=== PATIENT | male | born 1975 | race Caucasian/White ===

== ENCOUNTER 2018-03-30 12:07 | Emergency (ER) | payer OTHER ==
--- NOTE | 2018-03-30 13:54 | EDM.PDOC ---
<Radha Mathews N - Last Filed: 03/30/18 14:39> ED HPI GENERAL MEDICAL PROBLEM - General Chief Complaint: Flank Pain Stated Complaint: LT SIDE PAIN/DECREASED URINE OUTPUT/HAD PROCEDURE Time Seen by Provider: 03/30/18 13:20 - History of Present Illness INITIAL COMMENTS - FREE TEXT/NARRATIVE: Chandra is an otherwise healthy 42-year-old male who presents to the clinic with ongoing left-sided abdominal pain with radiation to the left flank. Reports a complicated history of renal calculi since age 15. Reports that he does not have a primary care provider and self-treats these stones at home. However, his most recent stone occurred a few weeks ago, and he was seen at urgent care, where he was told he had a 9 mm stone in the left ureter. He had a lithotripsy in [place] four days ago, and has had ongoing pain since that time. States he passed the stone the night after the lithotripsy. This was not tested. Reports decreased urine output and urinary frequency along with the pain, and states he is worried about a UTI. He did not receive antibiotics after the procedure. Denies fever, chills, hematuria, or other associated symptoms. Rates the pain at a 6/10 and describes it as dull/throbbing in nature. There are no known aggravating or relieving factors, and the pain is unrelieved by tylenol and ibuprofen. Left Flank Pain Score (Numeric/FACES): 3 - Related Data Allergies Allergy/AdvReac Type Severity Reaction Status Date / Time No Known Allergies Allergy Verified 12/18/15 21:20 Home Meds: Home Meds Ibuprofen 400 mg PO Q4H PRN 12/18/15 [History] Nicotine [Nicoderm CQ] 21 mg PO DAILY 12/18/15 [History] guaiFENesin [Robitussin] 10 ml PO Q4H PRN 12/18/15 [History] Acetaminophen [Tylenol] 650 mg PO 03/30/18 [History] Past Medical History Respiratory History: Reports: Other (See Below) Other Respiratory History: Emphysema Gastrointestinal History: Reports: PUD, Other (See Below) Other Gastrointestinal History: recent kidney stone taken care in [place] by Dr Sampson Genitourinary History: Reports: Other (See Below) Other Genitourinary History: recent kidney stone taken care in [place] by Dr Sampson 03/26/18 Musculoskeletal History: Reports: Fracture Neurological History: Reports: Migraines - Past Surgical History HEENT Surgical History: Reports: Myringotomy w Tube(s), Tonsillectomy GI Surgical History: Reports: EGD Musculoskeletal Surgical History: Reports: Other (See Below) Social & Family History - Tobacco Use Smoking Status *Q: Current Every Day Smoker Years of Tobacco use: 25 Packs/Tins Daily: 0.5 Used Tobacco, but Quit: No - Caffeine Use Caffeine Use: Reports: Coffee - Recreational Drug Use Recreational Drug Use: No - Living Situation & Occupation Living situation: Reports: Occupation: Employed ED ROS GENERAL - Review of Systems Constitutional: Reports: Decreased Appetite. Denies: Fever, Chills, Malaise, Weakness HEENT: Reports: No Symptoms Respiratory: Reports: No Symptoms. Denies: Shortness of Breath Cardiovascular: Reports: No Symptoms Endocrine: Reports: No Symptoms GI/Abdominal: Reports: Abdominal Pain, Diarrhea, Decreased Appetite. Denies: Constipation, Nausea, Vomiting : Reports: Flank Pain, Frequency, Other (Reduced urine output). Denies: Hematuria, Urgency Musculoskeletal: Reports: No Symptoms Skin: Reports: No Symptoms Neurological: Reports: No Symptoms Psychiatric: Reports: No Symptoms Hematologic/Lymphatic: Reports: No Symptoms Immunologic: Reports: No Symptoms ED EXAM, RENAL/ - Physical Exam Exam: See Below Text/Narrative:: This is a pleasant, 42-year-old male in no acute distress. He is accompanied by his significant other, and converses appropriately. Exam Limited By: No Limitations General Appearance: Alert, No Apparent Distress Ears: Normal External Exam, Normal Canal, Hearing Grossly Normal, Normal TMs Nose: Normal Inspection Throat/Mouth: Normal Inspection, Normal Lips, Normal Gums, Normal Oropharynx, Normal Voice, No Airway Compromise Head: Atraumatic Respiratory/Chest: No Respiratory Distress, Lungs Clear, Normal Breath Sounds Cardiovascular: Regular Rate, Rhythm, No Gallop, No JVD, No Murmur GI/Abdominal: Normal Bowel Sounds, Soft, No Distention, No Mass, Tender (On right side) (Male) Exam: Deferred Neurological: Alert, Oriented, CN II-XII Intact, No Motor/Sensory Deficits Psychiatric: Normal Affect, Normal Mood Skin Exam: Warm, Dry, Intact Course - Vital Signs Last Recorded V/S: Last Vital Signs Temp 35.4 C 03/30/18 15:59 Pulse 58 L 03/30/18 15:59 Resp 16 03/30/18 15:59 BP 138/78 03/30/18 15:59 Pulse Ox 100 03/30/18 15:59 - Orders/Labs/Meds Orders: Active Orders 24 hr Category Date Time Status Abdomen Pelvis wo Cont [CT] Stat Exams 03/30/18 14:41 Taken URINALYSIS W/MICROSCOPIC [UA W/MICROSCOPIC] [URIN] Stat Lab 03/30/18 13:43 Ordered Sodium Chloride 0.9% [Normal Saline] 1,000 ml Med 03/30/18 14:30 Active IV ASDIRECTED Sodium Chloride 0.9% [Saline Flush] Med 03/30/18 14:30 Active 10 ml FLUSH ASDIRECTED PRN Saline Lock Insert [OM.PC] Routine Oth 03/30/18 14:30 Ordered Medication Orders Sodium Chloride (Normal Saline) 1,000 mls @ 500 mls/hr IV ASDIRECTED MEJIA Last Admin: 03/30/18 15:05 Dose: 500 mls/hr Sodium Chloride (Saline Flush) 10 ml FLUSH ASDIRECTED PRN PRN Reason: Keep Vein Open Last Admin: 03/30/18 16:11 Dose: 10 ml Labs: Laboratory Tests 03/30/18 03/30/18 03/30/18 Range/Units 13:43 13:50 13:55 WBC 14.2 H (4.5-11.0) K/uL RBC 4.85 (4.30-5.90) M/uL Hgb 14.6 (12.0-15.0) g/dL Hct 42.6 (40.0-54.0) % MCV 88 (80-98) fL MCH 30 (27-31) pg MCHC 34 (32-36) % Plt Count 290 (150-400) K/uL Neut % (Auto) 79 H (36-66) % Lymph % (Auto) 13 L (24-44) % Henry % (Auto) 7 H (2-6) % Eos % (Auto) 2 (2-4) % Baso % (Auto) 0 (0-1) % Sodium 138 L (140-148) mmol/L Potassium 4.5 (3.6-5.2) mmol/L Chloride 102 (100-108) mmol/L Carbon Dioxide 27 (21-32) mmol/L Anion Gap 13.5 (5.0-14.0) mmol/L BUN 23 H (7-18) mg/dL Creatinine 1.6 H (0.8-1.3) mg/dL Est Cr Clr Drug Dosing 57.59 mL/min Estimated GFR (MDRD) 47 L (>60) Glucose 88 (74-106) mg/dL Calcium 8.9 (8.5-10.1) mg/dL Urine Color Yellow Urine Appearance Slightly cloudy Urine pH 6.0 (4.5-8.0) Ur Specific [place] 1.010 (1.008-1.030) Urine Protein Negative (NEGATIVE) mg/dL Urine Glucose (UA) Normal (NEGATIVE) mg/dL Urine Ketones Negative (NEGATIVE) mg/dL Urine Occult Blood Large (NEGATIVE) Urine Nitrite Negative (NEGAITVE) Urine Bilirubin Negative (NEGATIVE) Urine Urobilinogen Normal (NORMAL) mg/dL Ur Leukocyte Esterase Negative (NEGATIVE) Urine RBC 5-10 H (0-5) Urine WBC 0-5 (0-5) Amorphous Sediment Rare Urine Bacteria Rare Urine Mucus Not seen Meds: Medications Generic Name Dose Route Start Last Admin Trade Name Freq PRN Reason Stop Dose Admin Sodium Chloride 1,000 mls @ 500 mls/hr 03/30/18 14:30 03/30/18 15:05 Normal Saline IV 500 mls/hr ASDIRECTED MEJIA Administration Sodium Chloride 10 ml 03/30/18 14:30 03/30/18 16:11 Saline Flush FLUSH 10 ml ASDIRECTED PRN Administration Keep Vein Open Discontinued Medications Generic Name Dose Route Start Last Admin Trade Name Freq PRN Reason Stop Dose Admin Ceftriaxone Sodium 2 gm/ 50 mls @ 100 mls/hr 03/30/18 16:12 03/30/18 16:23 Sodium Chloride IV 03/30/18 16:41 100 mls/hr ONETIME ONE Administration Tamsulosin HCl 0.4 mg 03/30/18 14:40 03/30/18 15:02 Flomax PO 03/30/18 14:41 0.4 mg ONETIME ONE Administration Departure - Departure Disposition: Home, Self-Care 01 Clinical Impression: Pyelonephritis, Renal stones - Discharge Information Instructions: Pyelonephritis, Adult, [id number], Kidney Stones, [id number] Referrals: Ana Maria Melendez MD [Primary Care Provider] - Forms: ED Department Discharge Additional Instructions: You have been evaluated and treated for renal stone and infection. You have been given normal saline 1000ml IV, flomax 0.4mg PO, rocephin 2gm IV in the emergency room today. Take ciprofloxacin 500mg by mouth twice per day for 14 days (antibiotic) Take flomax 0.4mg by mouth daily to help with pain. You can take acetaminophen 1000mg by mouth three to four times a day as needed for pain. Use of ibuprofen 800mg by mouth three times a day will also help with pain. Avoid the use of alcohol or sugary drinks. Drink plenty of water to stay hydrated and flush your kidneys. Keep your appointment as scheduled on April [address] Pompa. If you are not improving in the next 4 days, request to be seen by Dr. Pompa earlier. If you have symptoms of worsening, issues or concerns, return to the emergency room. - My Orders Last 24 Hours: My Active Orders 03/30/18 14:30 Sodium Chloride 0.9% [Normal Saline] 1,000 ml IV ASDIRECTED Sodium Chloride 0.9% [Saline Flush] 10 ml FLUSH ASDIRECTED PRN Saline Lock Insert [OM.PC] Routine 03/30/18 14:41 Abdomen Pelvis wo Cont [CT] Stat - Assessment/Plan Last 24 Hours: My Active Orders 03/30/18 14:30 Sodium Chloride 0.9% [Normal Saline] 1,000 ml IV ASDIRECTED Sodium Chloride 0.9% [Saline Flush] 10 ml FLUSH ASDIRECTED PRN Saline Lock Insert [OM.PC] Routine 03/30/18 14:41 Abdomen Pelvis wo Cont [CT] Stat <Ara Phillip - Last Filed: 03/30/18 17:48> ED HPI GENERAL MEDICAL PROBLEM - General Source of Information: Reports: Patient, Family History Limitations: Reports: No Limitations ED ROS GENERAL - Review of Systems Review Of Systems: See Below Course - Radiology Interpretation CT Results Date: 03/30/18 - Re-Assessments/Exams Free Text/Narrative Re-Assessment/Exam: 03/30/18 14:42 Patient continues to suffer pain, lab work reviewed. We will administer IV fluids, provide flomax for pain and complete ABD/pelvis CT. Free Text/Narrative Re-Assessment/Exam: 03/30/18 16:13 CT report reviewed, lab work reviewed with Dr. Officer, he is in agreement with plan. We will administer rocephin 2 gm IV, discharge with ciprofloxacin PO, flomax and Ibuprofen. Patient in agreement. 03/30/18 17:40 Patient reports improvement, he will be discharged to home. Departure - Departure Time of Disposition: 17:35 Condition: Fair - Discharge Information *PRESCRIPTION DRUG MONITORING PROGRAM REVIEWED*: Yes *COPY OF PRESCRIPTION DRUG MONITORING REPORT IN PATIENT DANIEL: Not Applicable - Assessment/Plan Plan: Patient evaluated and treated for renal stone and infection. He was given normal saline 1000ml IV, flomax 0.4mg PO, rocephin 2gm IV in the emergency room today. Take ciprofloxacin 500mg by mouth twice per day for 14 days (antibiotic) Take flomax 0.4mg by mouth daily to help with pain. You can take acetaminophen 1000mg by mouth three to four times a day as needed for pain. Use of ibuprofen 800mg by mouth three times a day will also help with pain. Avoid the use of alcohol or sugary drinks. Drink plenty of water to stay hydrated and flush your kidneys. Keep appointment as scheduled on April [address] Pompa. If not improving in the next 4 days, request to be seen by Dr. Pompa earlier. If he has symptoms of worsening, issues or concerns, return to the emergency room.
[2018-03-30] MEDS ORDERED: Sodium Chloride 0.9% 10 ML Syringe FLUSH PRN (14:30)
[2018-03-30] MEDS ORDERED: Sodium Chloride 0.9% 1,000 ML IV SCH (14:30)
[2018-03-30] MEDS ORDERED: Tamsulosin 0.4 MG Cap.ER PO ONE (14:40)
[2018-03-30 16:00] VITALS: BP 138/78
[2018-03-30] MEDS ORDERED: cefTRIAXone 2 GM in Sodium Chloride 0.9% 50 ML IV ONE (16:12)
== END 2018-03-30 17:46 | disposition home or self-care (01) ==
LOC: JP.ED 12:07
DX: N13.6 Pyonephrosis (principal); F17.210 Nicotine dependence, cigarettes, uncomplicated; Z79.899 Other long term (current) drug therapy
CPT/HCPCS: 36415; 74176; 80048; 81001; 85025; 96365; 99284; A9270; J0696; J7030; J7050

== ENCOUNTER 2021-05-22 17:22 | Emergency (ER) | payer OTHER ==
[2021-05-22] MEDS ORDERED: Sodium Chloride 0.9% 10 ML Syringe FLUSH PRN (17:48)
[2021-05-22 17:56] VITALS: BP 145/84; PULSE 71
--- NOTE | 2021-05-22 17:59 | EDM.PDOC ---
ED HPI GENERAL MEDICAL PROBLEM - General Chief Complaint: Abdominal Pain Stated Complaint: hx of kidney stone- Time Seen by Provider: 05/22/21 17:48 Source of Information: Reports: Patient, RN History Limitations: Reports: No Limitations - History of Present Illness INITIAL COMMENTS - FREE TEXT/NARRATIVE: Chandra is a 45 year old male whom presents to ER for evaluation of right mid abdominal pain which has been intermittent since March located in right mid abdomen. Chandra report history of kidney stones known 4 and 7 mm in left kidney in addition to previous left kidney stone 15 x 25mm which required lithotripsy to facilitate removal. Chandra denies any other previous abdominal surgeries. Chandra report pain as pressure and gnawing pain with intermittent sharp stabbing pain in right mid abdomen. Chandra report pain often subsides after some time except for the last 2 days the pain has not resolved. Pain was worsen earlier today resulting in nausea and vomiting which prompted ER visit today. Pain at time of assessment is 4 out of 10. Abdomen Pain Score (Numeric/FACES): 4 - Related Data Allergies Allergy/AdvReac Type Severity Reaction Status Date / Time No Known Allergies Allergy Verified 05/22/21 17:41 Home Meds: Home Meds Omeprazole Magnesium [Prilosec Otc] 20 mg PO ASDIRECTED 05/22/21 [History] Ondansetron [Zofran ODT] 4 mg PO Q6H PRN 2 Days #10 tab.dis 05/22/21 [Rx] Tamsulosin HCl [Flomax] 0.4 mg PO BEDTIME 10 Days #10 cap.er.24h 05/22/21 [Rx] Past Medical History Respiratory History: Reports: Other (See Below) Other Respiratory History: Emphysema Gastrointestinal History: Reports: Other (See Below) Other Gastrointestinal History: recent kidney stone taken care in [place] by Dr Sampson Genitourinary History: Reports: Renal Calculus Other Genitourinary History: recent kidney stone taken care in [place] by Dr Sampson 03/26/18 Musculoskeletal History: Reports: Fracture Neurological History: Reports: Migraines - Past Surgical History HEENT Surgical History: Reports: Myringotomy w Tube(s), Tonsillectomy GI Surgical History: Reports: EGD Male Surgical History: Reports: Lithotripsy ([facility]) Musculoskeletal Surgical History: Reports: Other (See Below) Other Musculoskeletal Surgeries/Procedures:: left middle digit, right hand Social & Family History - Tobacco Use Tobacco Use Status *Q: Heavy Tobacco User Years of Tobacco use: 30 Packs/Tins Daily: 0.7 - Caffeine Use Caffeine Use: Reports: Coffee - Recreational Drug Use Recreational Drug Use: No - Living Situation & Occupation Living situation: Reports: Occupation: Employed ED ROS GENERAL - Review of Systems Review Of Systems: Comprehensive ROS is negative, except as noted in HPI. ED EXAM, GI/ABD - Physical Exam Exam: See Below Exam Limited By: No Limitations General Appearance: Alert, WD/WN, Mild Distress (due to abdominal discomfort) Eyes: Bilateral: Normal Appearance Ears: Hearing Grossly Normal Nose: Normal Inspection Throat/Mouth: Normal Voice, No Airway Compromise Neck: Normal Inspection, Full Range of Motion Respiratory/Chest: No Respiratory Distress, Lungs Clear, Normal Breath Sounds Cardiovascular: Normal Peripheral Pulses, Regular Rate, Rhythm GI/Abdominal Exam: Soft, Non-Tender (slight mid right abdominal discomfort without guarding or peritoneal signs. Fairly benign abdomen) Back Exam: Normal Inspection, Full Range of Motion. No: CVA Tenderness (R), CVA Tenderness (L) Extremities: Normal Inspection Neurological: Alert, Oriented, CN II-XII Intact, Normal Cognition Course - Vital Signs Last Recorded V/S: Last Vital Signs Temp 36.4 C 05/22/21 17:39 Pulse 71 05/22/21 17:39 Resp 18 05/22/21 17:39 BP 145/84 H 05/22/21 17:39 Pulse Ox 99 05/22/21 17:39 - Orders/Labs/Meds Orders: Active Orders 24 hr Category Date Time Status Peripheral IV Care [RC] . DIRECTED Care 05/22/21 17:49 Active Strain Urine [RC] ASDIRECTED Care 05/22/21 18:09 Active Sodium Chloride 0.9% [Saline Flush] Med 05/22/21 17:48 Active 10 ml FLUSH ASDIRECTED PRN Peripheral IV Insertion Adult [OM.PC] Urgent Oth 05/22/21 17:48 Ordered Medication Orders Sodium Chloride (Sodium Chloride 0.9% 10 Ml Syringe) 10 ml FLUSH ASDIRECTED PRN PRN Reason: Keep Vein Open Labs: Laboratory Tests 05/22/21 05/22/21 05/22/21 Range/Units 17:49 18:00 18:00 WBC 16.1 H (4.5-11.0) K/uL RBC 4.71 (4.30-5.90) M/uL Hgb 14.7 (12.0-15.0) g/dL Hct 41.5 (40.0-54.0) % MCV 88 (80-98) fL MCH 31 (27-31) pg MCHC 35 (32-36) % Plt Count 296 (150-400) K/uL Neut % (Auto) 81.6 H (36-66) % Lymph % (Auto) 9.4 L (24-44) % [place] % (Auto) 7.1 H (2-6) % Eos % (Auto) 1.7 L (2-4) % Baso % (Auto) 0.2 (0-1) % Sodium 135 L (140-148) mmol/L Potassium 4.3 (3.6-5.2) mmol/L Chloride 101 (100-108) mmol/L Carbon Dioxide 27 (21-32) mmol/L Anion Gap 11.3 (5.0-14.0) mmol/L BUN 22 H (7-18) mg/dL Creatinine 1.3 (0.8-1.3) mg/dL Est Cr Clr Drug Dosing 66.38 mL/min Estimated GFR (MDRD) 59 L (>60) Glucose 91 (74-106) mg/dL Calcium 9.3 (8.5-10.1) mg/dL Total Bilirubin 0.2 (0.2-1.0) mg/dL AST 18 (15-37) U/L ALT 24 (12-78) U/L Alkaline Phosphatase 65 (46-116) U/L Total Protein 6.3 L (6.4-8.2) g/dL Albumin 3.6 (3.4-5.0) g/dL Globulin 2.7 (2.3-3.5) g/dL Albumin/Globulin Ratio 1.3 (1.2-2.2) Lipase 115 (73-393) U/L Urine Color Yellow (YELLOW) Urine Appearance Clear (CLEAR) Urine pH 6.0 (5.0-8.0) Ur Specific [place] 1.020 (1.008-1.030) Urine Protein Negative (NEGATIVE) mg/dL Urine Glucose (UA) Negative (NEGATIVE) mg/dL Urine Ketones Negative (NEGATIVE) mg/dL Urine Occult Blood Moderate H (NEGATIVE) Urine Nitrite Negative (NEGATIVE) Urine Bilirubin Negative (NEGATIVE) Urine Urobilinogen 0.2 (0.2-1.0) EU/dL Ur Leukocyte Esterase Negative (NEGATIVE) Urine RBC 5-10 H (0-5) Urine WBC 0-5 (0-5) Ur Epithelial Cells Not seen Amorphous Sediment Few Urine Bacteria Occasional Urine Mucus Moderate Urine Other See note Meds: Medications Generic Name Dose Route Start Last Admin Trade Name Freq PRN Reason Stop Dose Admin Sodium Chloride 10 ml 05/22/21 17:48 Sodium Chloride 0.9% 10 Ml Syringe FLUSH ASDIRECTED PRN Keep Vein Open - Re-Assessments/Exams Free Text/Narrative Re-Assessment/Exam: Reviewed preliminary CT reading per myself and physician noting right 7 mm distal ureteral stone with hydronephrosis and hydroureter with perinephric [id number]. Ct report completed by Radiologist was available and printed for patient reference. Additiona utereral stones in right and left kidney: Right 1 mm and 2 mm Left: 5 mm, 1 and 2 mm noted. 05/22/21 19:11 Departure - Departure Time of Disposition: 19:13 Disposition: Home, Self-Care 01 Clinical Impression: Ureteral stone with hydronephrosis, Bilateral kidney stones - Discharge Information Prescriptions: Tamsulosin HCl [Flomax] 0.4 mg PO BEDTIME 10 Days #10 cap.er.24h Ondansetron [Zofran ODT] 4 mg PO Q6H PRN 2 Days #10 tab.dis PRN Reason: Vomiting Instructions: Low-Purine Eating Plan, Kidney Stones, Renal Colic, Hydronephrosis Referrals: PCP,None [Primary Care Provider] - Forms: ED Department Discharge Additional Instructions: Medical Kidney stone Expulsion Therapy Flomax is a medication used if stone in ureter (tube between kidney and bladder) is larger in size and more than half way from the kidney to the urinary bladder. Flomax may improve pain, speed up the passage of the kidney stone and decrease pain. Please take your next dose tomorrow, if you receive your first dose during your ER visit. Strain all of your urine. If you notice stone in the filter, place in container and take to your primary care physician for analyzing. 1. Increase Fluid intake. Pain should resolve in 48-72 hours. Zofran 4mg ODT prn every 6-8 hrs as needed for nausea. 2. Ibuprofen or Naproxen (with food) every 6-8hours for inflammation, pain and swelling. 3. Tylenol (Acetaminophen) every 6-8hours for mild pain OR 4. Narcotic pain medications (if offered) as directed for moderate to severe pain (declined) 5. Strain all urine to save stone for possible lab analysis. 6. See PCP or Contact Urology clinic in 3-4 days to follow-up if pain is not resolved or improving. 7. Return to ER, PCP or Urgent Care clinic for repeat evaluation if increase, changes, new or worsen symptoms (including uncontrolled fever, pain, nausea/vomiting) Discharge Instructions Kidney Stones Kidney stones are a common problem that can cause a lot of pain but fortunately are usually not dangerous. Kidney stones form in the kidney and then can cause a blockage (obstruction) of the flow of urine from the kidney which leads to pain. Most patients can manage kidney stones at home (without a hospital stay). However, sometimes your condition may be worse than it seemed at first, or may get worse with time. Most kidney stones will pass on their own, but occasionally stones may need to be removed by an urologist. Generally, every Emergency Department visit should have a follow-up clinic visit with either a primary or a specialty clinic/provider. Please follow-up as instructed by your emergency provider today. Return to the Emergency Department if: Your pain is not controlled despite the medications provided or recommended. You are vomiting (throwing up) and cannot keep fluids or medications down. You develop a fever (>100.4F). You feel much more ill or develop new symptoms. What can I do to help myself? Be sure to drink plenty of fluids. If instructed to do so, strain your urine (pee) with the urine strainer you were provided with today. Your stone may look like a grain of sand or a small pebble. Collect any stones in the cup provided and bring to your follow-up appoi ntment. Staying active is good, and may help the stone to pass. You may do whatever you feel up to doing without restrictions. Treatment: Non-steroidal anti-inflammatory drugs (NSAIDs). This includes prescription medicines like Toradol (ketorolac) and non-prescription medicines like Advil (ibuprofen) and Nuprin (ibuprofen) and Naproxen. These pain relievers are very effective for kidney stones. Nausea (sick to your stomach) medication. Nausea and vomiting are common with kidney stones, so your provider may send you home with medicine for this. Flomax (tamsulosin). This medicine is sometimes used for men with prostate problems, but also can help kidney stones to pass. Its effectiveness is controversial or questionable so it is prescribed in certain situations. This medicine can lower blood pressure, and you may feel faint/lightheaded, especially when you first stand up. Be sure to get up gradually, sit down if you feel faint, and avoid activity where feeling faint would be dangerous, such as climbing ladders. If you were given a prescription for medicine here today, be sure toread all of the information (including the package insert) that comes with your prescription. This will include important information about the medicine, its side effects, and any warnings that you need to know about. The pharmacist who fills the prescription can provide more information and answer questions you may have about the medicine. If you have questions or concerns that the pharmacist cannot address, please call or return to the Emergency Department. Remember that you can always come back to the Emergency Department if you are not able to see your regular provider in the amount of time listed above, if you get any new symptoms, or if there is anything that worries you. Sepsis Event Note (ED) - Focused Exam Vital Signs: Vital Signs Temp Pulse Resp BP Pulse Ox 05/22/21 17:39 36.4 C 71 18 145/84 H 99 - My Orders Last 24 Hours: My Active Orders 05/22/21 17:48 Sodium Chloride 0.9% [Saline Flush] 10 ml FLUSH ASDIRECTED PRN Peripheral IV Insertion Adult [OM.PC] Urgent 05/22/21 17:49 Peripheral IV Care [RC] . DIRECTED 05/22/21 18:09 Strain Urine [RC] ASDIRECTED - Assessment/Plan Last 24 Hours: My Active Orders 05/22/21 17:48 Sodium Chloride 0.9% [Saline Flush] 10 ml FLUSH ASDIRECTED PRN Peripheral IV Insertion Adult [OM.PC] Urgent 05/22/21 17:49 Peripheral IV Care [RC] . DIRECTED 05/22/21 18:09 Strain Urine [RC] ASDIRECTED
--- NOTE | 2021-05-22 18:56 | CRLCT ---
For Patients: As a result of the Century Cures Act, medical imaging exams and procedure reports are released immediately into your electronic medical record. You may view this report before your referring provider. If you have questions, please contact your health care provider. Indication: Right lower quadrant pain. Technique: Multiple contiguous axial images were obtained from the lung bases through the symphysis pubis without intravenous contrast enhancement. Please note that all CT scans at this facility use dose modulation, iterative reconstruction, and/or weight-based dosing when appropriate to reduce radiation dose to as low as reasonably achievable. Comparison: March 30, 2018. Findings: The lung bases are clear. The heart is normal in size. No pericardial effusion is identified. The unenhanced liver, spleen, pancreas, gallbladder, adrenals, left kidney are normal. The right-sided hydronephrosis and perinephric fat stranding is identified. A nonobstructing right renal calculus is identified. Hydroureter is identified. A distal right ureteral calculus is identified measuring 7 mm in size. This is best seen on image number 176, series 2. In the bladder, thickening of the wall of the bladder is identified, most likely due to lack of complete distention. A small left fat containing inguinal hernias identified. Prostatic calcifications are identified. The prostate gland is normal. The small and large bowel are normal in caliber. No free air or free fluid is identified within the abdomen or pelvis. The aorta is normal in caliber. No lytic or blastic lesions are identified. Impression: Right-sided hydroureteronephrosis and hydroureter with a distal right ureteral calculus. Please note that all CT scans at this facility use dose modulation, iterative reconstruction, and/or weight-based dosing when appropriate to reduce radiation dose to as low as reasonably achievable. Dictated by Nadiya Mcgee MD @ 05/22/2021 6:55:04 PM (Electronically Signed)
== END 2021-05-22 19:16 | disposition home or self-care (01) ==
LOC: JP.ED 17:22
DX: N13.2 Hydronephrosis with renal and ureteral calculous obstruction (principal); Z72.0 Tobacco use
CPT/HCPCS: 36415; 74176; 80053; 81001; 83690; 85025; 99284-25